=== PATIENT | male | born 1955 | race Caucasian/White ===

== ENCOUNTER 2018-12-09 20:50 | Emergency (ER) | payer BC ==
--- NOTE | 2018-12-09 21:11 | EDM.PDOC ---
ED HPI GENERAL MEDICAL PROBLEM - General Chief Complaint: Flank Pain Stated Complaint: Flank Pain Time Seen by Provider: 12/09/18 20:59 Source of Information: Reports: Patient History Limitations: Reports: No Limitations - History of Present Illness INITIAL COMMENTS - FREE TEXT/NARRATIVE: Patient presents with complaints of bilateral flank pain and cloudy urine. 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 States all other functions returned to normal except his bladder function. Denies chest pain, sob, fever, chills, head ache, abdominal pain. Regular bowel movements, no blood in urine or stool. Onset: Today, Sudden Duration: Intermittent Severity: Moderate Worsens with: Reports: Movement Flank Pain Score (Numeric/FACES): 5 - Related Data Allergies Allergy/AdvReac Type Severity Reaction Status Date / Time pseudoephedrine HCl Allergy Other Verified 12/09/18 21:02 [From [facility]] shrimp Allergy Anaphylactic Verified 12/09/18 21:02 Shock Home Meds: Home Meds Aspirin 81 mg PO DAILY 12/26/15 [History] Montelukast [Singulair] 10 mg PO DAILY 12/26/15 [History] Albuterol Sulfate [Proair Hfa] 8.5 gm IH Q4HR PRN 12/09/18 [History] Levothyroxine [Synthroid] 50 mcg PO ACBREAKFAST 12/09/18 [History] Past Medical History HEENT History: Reports: Allergic Rhinitis - Past Surgical History Musculoskeletal Surgical History: Reports: Arthroscopic Knee, Other (See Below) ED ROS GENERAL - Review of Systems Review Of Systems: See Below Constitutional: Reports: No Symptoms HEENT: Reports: No Symptoms Respiratory: Reports: No Symptoms Cardiovascular: Reports: No Symptoms Endocrine: Reports: No Symptoms GI/Abdominal: Reports: No Symptoms : Reports: Other (cloudy, foul smelling urine) Musculoskeletal: Reports: Back Pain (bilateral flank pain) Skin: Reports: No Symptoms Neurological: Reports: No Symptoms Psychiatric: Reports: No Symptoms Hematologic/Lymphatic: Reports: No Symptoms Immunologic: Reports: No Symptoms ED EXAM, RENAL/ - Physical Exam Exam: See Below Exam Limited By: No Limitations General Appearance: Alert, WD/WN, No Apparent Distress Head: Atraumatic, Normocephalic Neck: Normal Inspection, Supple, Non-Tender, Full Range of Motion Respiratory/Chest: No Respiratory Distress, Lungs Clear, Normal Breath Sounds, No Accessory Muscle Use, Chest Non-Tender Cardiovascular: Normal Peripheral Pulses, Regular Rate, Rhythm, No Edema, No Gallop, No JVD, No Murmur, No Rub GI/Abdominal: Normal Bowel Sounds, Soft, Non-Tender, No Organomegaly, No Distention, No Abnormal Bruit, No Mass Back Exam: CVA Tenderness (L), CVA Tenderness (R) Extremities: Normal Inspection, Normal Range of Motion, Non-Tender, Normal Capillary Refill, No Pedal Edema Neurological: Alert, Oriented, CN II-XII Intact, Normal Cognition, Normal Gait, Normal Reflexes, No Motor/Sensory Deficits Psychiatric: Normal Affect, Normal Mood Skin Exam: Warm, Dry, Intact, Normal Color, No Rash Lymphatic: No Adenopathy Course - Vital Signs Last Recorded V/S: Last Vital Signs Temp 36.6 C 12/09/18 21:08 Pulse 61 12/09/18 21:08 Resp 14 12/09/18 21:08 BP 150/72 H 12/09/18 21:08 Pulse Ox 97 12/09/18 21:08 - Orders/Labs/Meds Orders: Active Orders 24 hr Category Date Time Status CULTURE URINE [RM] Stat Lab 12/09/18 21:42 Ordered Labs: Laboratory Tests 12/09/18 Range/Units 21:30 Urine Color Light yellow (YELLOW) Urine Appearance Cloudy H (CLEAR) Urine pH 7.0 (5.0-8.0) Ur Specific [place] 1.010 Urine Protein Negative (NEGATIVE) mg/dL Urine Glucose (UA) Negative (NEGATIVE) mg/dL Urine Ketones Negative (NEGATIVE) mg/dL Urine Occult Blood Small H (NEGATIVE) Urine Nitrite Negative (NEGATIVE) Urine Bilirubin Negative (NEGATIVE) Urine Urobilinogen 0.2 (0.2) EU/dL Ur Leukocyte Esterase Large H (NEGATIVE) Urine RBC 5-10 H (NOT SEEN) /HPF Urine WBC 20-30 H (NOT SEEN) /HPF Ur Squamous Epith Cells Not seen (NEGATIVE) /HPF Urine Bacteria Not seen (NEGATIVE) /HPF Urine Mucus Not seen (NEGATIVE) /LPF Meds: Medications Discontinued Medications Generic Name Dose Route Start Last Admin Trade Name Freq PRN Reason Stop Dose Admin Ceftriaxone Sodium 1 gm/ 0 gm 12/09/18 21:49 12/09/18 21:54 Lidocaine HCl 2.1 ml IM 12/09/18 21:50 1 inj ONETIME ONE Administration - Re-Assessments/Exams Free Text/Narrative Re-Assessment/Exam: 12/09/18 22:06 Started on Augmentin due to prior culture results that showed resistance to ciprofloxacin, levofloxacin, bactrim, and ampicillin from October 2018 Departure - Departure Time of Disposition: 22:04 Disposition: Home, Self-Care 01 Condition: Good Clinical Impression: Pyelonephritis - Discharge Information *PRESCRIPTION DRUG MONITORING PROGRAM REVIEWED*: Not Applicable *COPY OF PRESCRIPTION DRUG MONITORING REPORT IN PATIENT JUDY: Not Applicable Instructions: Amoxicillin; Clavulanic Acid tablets, Pyelonephritis, Adult, Easy -to-Read, Flank Pain, Adult, [id number], Probiotics Forms: ED Department Discharge Additional Instructions: Plan 1. Stay well hydrated 2. Take the augmentin twice a day for 14 days. Follow up in about 3 weeks with Robb Barahona for a urine sample to be sure the infection has resolved 3. Eat 1-2 servings of yogurt or take daily probiotics to prevent a bacterial infection of the colon due to antibiotic use 4. Please follow up with your primary for any additional symptom management 5. Call the ED if you have any additional questions or concerns - Problem List & Annotations (1) Pyelonephritis SNOMED Code(s): 24267805 Code(s): N12 - TUBULO-INTERSTITIAL NEPHRITIS, NOT SPCF ACUTE OR CHRONIC Status: Acute Priority: Medium Current Visit: Yes - Problem List Review Problem List Initiated/Reviewed/Updated: Yes - My Orders Last 24 Hours: My Active Orders 12/09/18 21:42 CULTURE URINE [RM] Stat - Assessment/Plan Last 24 Hours: My Active Orders 12/09/18 21:42 CULTURE URINE [RM] Stat Assessment:: pyelonephritis Plan: Plan 1. Stay well hydrated 2. Take the augmentin twice a day for 14 days. Follow up in about 3 weeks with Robb Barahona for a urine sample to be sure the infection has resolved 3. Eat 1-2 servings of yogurt or take daily probiotics to prevent a bacterial infection of the colon due to antibiotic use 4. Please follow up with your primary for any additional symptom management 5. Call the ED if you have any additional questions or concerns
[2018-12-09] MEDS ORDERED: cefTRIAXone 1 GM, Lidocaine 1% 2.1 ML IM ONE ×2 (21:49)
== END 2018-12-09 22:04 | disposition home or self-care (01) ==
LOC: VM.ED 20:50
DX: N12 Tubulo-interstitial nephritis, not specified as acute or chronic (principal); Z91.013 Allergy to seafood; Z88.8 Allergy status to other drugs, medicaments and biological substances; Z79.82 Long term (current) use of aspirin; Z79.899 Other long term (current) drug therapy
CPT/HCPCS: 81001; 87086; 87088; 87186; 96372; 99284; J0696; J2001

== ENCOUNTER 2021-02-25 10:19 | Emergency (ER) | payer BC ==
[2021-02-25 11:15] LABS: CHLORIDE,CL 105 mmol/L (98-107); SODIUM,NA 141 mmol/L (136-145)
[2021-02-25 11:30] LABS: ANION GAP 11.6 mmol/L (5-15)
--- NOTE | 2021-02-25 16:02 | EDM.PDOC ---
ED HPI GENERAL MEDICAL PROBLEM - General Chief Complaint: Genitourinary Problem Stated Complaint: TESTICLE PAIN Time Seen by Provider: 02/25/21 10:28 Source of Information: Reports: Patient History Limitations: Reports: No Limitations - History of Present Illness INITIAL COMMENTS - FREE TEXT/NARRATIVE: Pt. presents to ER with complaints of testicular pain, R greater than left. He states that he has been having the pain since Thursday. Pt. has a history of urinary retention and intermittent self caths. He states that he has had some burning with urination. He states that he may have injured the area when he was masturbating. He denies any fever or chills. No penile discharge. No genital rashes or lesions. Denies any abdominal pain. No nausea, vomiting, or diarrhea. He states that he has issues with constipation chronically. Onset: Today Onset Date: 02/25/21 Location: Reports: Pelvis, Other Quality: Reports: Ache Severity: Moderate Right Scrotum Pain Score (Numeric/FACES): 4 - Related Data Allergies Allergy/AdvReac Type Severity Reaction Status Date / Time shrimp Allergy Severe Anaphylactic Verified 02/25/21 10:29 Shock pseudoephedrine HCl Allergy Other Verified 02/25/21 10:29 [[facility] Home Meds: Home Meds Aspirin 81 mg PO DAILY 12/26/15 [History] Montelukast [Singulair] 10 mg PO DAILY 12/26/15 [History] Albuterol Sulfate [Proair Hfa] 8.5 gm IH Q4HR PRN 12/09/18 [History] Levothyroxine [Synthroid] 50 mcg PO ACBREAKFAST 12/09/18 [History] Past Medical History HEENT History: Reports: Allergic Rhinitis Cardiovascular History: Reports: High Cholesterol Respiratory History: Reports: Asthma, Other (See Below) Other Respiratory History: Asthma - Mild Intermittent Genitourinary History: Reports: Neurogenic Bladder Neurological History: Reports: Other (See Below) Other Neuro History: Transverse Myelitis Endocrine/Metabolic History: Reports: Hypothyroidism, Obesity/BMI 30+, Other (See Below) Other Endocrine/Metabolic History: Hemochromatosis. Hyperlipidemia - Past Surgical History Male Surgical History: Reports: TURP-Transurethral Resection of Prostate, Other (See Below) Other Male Surgeries/Procedures: TURP (2002) Musculoskeletal Surgical History: Reports: Arthroscopic Knee, Other (See Below) Other Musculoskeletal Surgeries/Procedures:: Left Knee Arthroscopy - Debridement and Cartilage Removal (2013). Surgical Repair of Ankle Fracture (2003) Social & Family History - Tobacco Use Tobacco Use Status *Q: Unknown Ever Used Tobacco ED ROS GENERAL - Review of Systems Review Of Systems: See Below Constitutional: Reports: No Symptoms HEENT: Reports: No Symptoms Respiratory: Reports: No Symptoms Cardiovascular: Reports: No Symptoms Endocrine: Reports: No Symptoms GI/Abdominal: Reports: No Symptoms : Reports: Other (see HPI) Musculoskeletal: Reports: No Symptoms Skin: Reports: No Symptoms Neurological: Reports: No Symptoms Psychiatric: Reports: No Symptoms Hematologic/Lymphatic: Reports: No Symptoms Immunologic: Reports: No Symptoms ED EXAM, GENERAL - Physical Exam Exam: See Below Exam Limited By: No Limitations General Appearance: Alert, WD/WN, No Apparent Distress (Male) Exam: No Hernia, Normal Inspection, Circumcised, Cremasteric Reflex, Testicular Tenderness (L), Testicular Tenderness (R). No: Hernia, Inguinal Lymphadenopathy, Rash, Scrotal Swelling, Suprapubic Fullness, Testicular Mass, Urethral Discharge Course - Vital Signs Last Recorded V/S: Last Vital Signs Temp 36.5 C 02/25/21 10:22 Pulse 61 02/25/21 10:22 Resp 16 02/25/21 10:22 BP 142/71 H 02/25/21 10:22 Pulse Ox 97 02/25/21 10:22 - Orders/Labs/Meds Orders: Active Orders 24 hr Category Date Time Status CHLAMYDIA AND GONORRHEA BY TMA Stat Lab 02/25/21 10:40 Received CULTURE URINE [RM] Stat Lab 02/25/21 10:40 Received Labs: Laboratory Tests 02/25/21 02/25/21 02/25/21 Range/Units 10:40 10:52 10:52 WBC 4.4 (4.0-10.0) x10^3/uL RBC 4.22 L (4.5-6.0) x10^6/uL Hgb 14.1 (14.0-18.0) g/dL Hct 40.1 (40.0-52.0) % MCV 95.0 H (78.0-93.0) fL MCH 33.4 H (26.0-32.0) pg MCHC 35.2 (32.0-36.0) g/dL RDW Coeff of [place] 11.9 (10.0-15.0) % Plt Count 203 (130-400) x10^3/uL Immature Gran % (Auto) 0.00 (0.00-0.43) % Neut % (Auto) 57.5 (50.0-80.0) % Lymph % (Auto) 30.4 (25.0-50.0) % [place] % (Auto) 9.8 (2.0-11.0) % Eos % (Auto) 1.6 (0.0-4.0) % Baso % (Auto) 0.7 (0.2-1.2) % Neut # (Auto) 2.5 (1.8-7.7) x10^3/uL Lymph # (Auto) 1.3 (1.0-4.8) x10^3/uL [place] # (Auto) 0.4 (0.0-0.8) x10^3/uL Eos # (Auto) 0.1 (0.0-0.5) x10^3/uL Baso # (Auto) 0.0 (0.0-0.2) x10^3/uL Immature Gran # (Auto) 0.00 (0.00-0.07) x10^3/uL Sodium 141 (136-145) mmol/L Potassium 4.6 (3.5-5.1) mmol/L Chloride 105 (98-107) mmol/L Carbon Dioxide 29 (21-32) mmol/L Anion Gap 11.6 (5-15) mmol/L BUN 14 (7-18) mg/dL Creatinine 0.9 (0.70-1.30) mg/dL Est Cr Clr Drug Dosing TNP Estimated GFR (MDRD) > 60 Glucose 95 (70-99) mg/dL Calcium 8.5 (8.5-10.1) mg/dL Corrected Calcium 8.8 (8.5-10.1) mg/dL Total Bilirubin 0.5 (0.2-1.0) mg/dL AST 22 (15-37) U/L ALT 40 (16-63) U/L Alkaline Phosphatase 85 (46-116) U/L C-Reactive Protein 0.2 (<=0.9) mg/dL Total Protein 6.5 (6.4-8.2) g/dL Albumin 3.6 (3.4-5.0) g/dL Globulin 2.9 Albumin/Globulin Ratio 1.24 Urine Color Light yellow (YELLOW) Urine Appearance Cloudy H (CLEAR) Urine pH 7.5 (5.0-8.0) Ur Specific [place] 1.015 Urine Protein Negative (NEGATIVE) mg/dL Urine Glucose (UA) Negative (NEGATIVE) mg/dL Urine Ketones Negative (NEGATIVE) mg/dL Urine Occult Blood Trace-intact H (NEGATIVE) Urine Nitrite Negative (NEGATIVE) Urine Bilirubin Negative (NEGATIVE) Urine Urobilinogen 0.2 (0.2) EU/dL Ur Leukocyte Esterase Large H (NEGATIVE) Urine RBC 0-5 (NOT SEEN) /HPF Urine WBC 50-75 H (NOT SEEN) /HPF Ur Squamous Epith Cells Few H (NOT SEEN) /HPF Urine Bacteria Rare (NOT SEEN) /HPF Urine Mucus Not seen (NOT SEEN) /LPF - Radiology Interpretation Free Text/Narrative:: Duplex testicular US obtained. Verbal result called to ER by Dr. Anand at [facility]. He did not favor any torsion, obvious epididymidis, testicu lar trauma, or other pathology. Departure - Departure Time of Disposition: 11:15 Disposition: Home, Self-Care 01 Clinical Impression: UTI (urinary tract infection) - Discharge Information Instructions: Spermatocele Referrals: Reuben Mcdermott MD [Primary Care Provider] - Forms: ED Department Discharge Additional Instructions: Go to [facility] in [place] immediately for a testicular ultrasound. I will call you with the results of your tests (lab and ultrasound) and give you further instructions. Sepsis Event Note (ED) - Focused Exam Vital Signs: Vital Signs Temp Pulse Resp BP Pulse Ox 02/25/21 10:22 36.5 C 61 16 142/71 H 97 - Problem List Review Problem List Initiated/Reviewed/Updated: Yes - My Orders Last 24 Hours: My Active Orders 02/25/21 10:40 CHLAMYDIA AND GONORRHEA BY TMA Stat CULTURE URINE [RM] Stat - Assessment/Plan Last 24 Hours: My Active Orders 02/25/21 10:40 CHLAMYDIA AND GONORRHEA BY TMA Stat CULTURE URINE [RM] Stat Plan: Pt. was discharged to undergo ultrasound at [facility] before his labs were back, as the aerospace technician was leaving soon. No evidence of pathology on ultrasound. Labs were all within normal limits with the exception of LE in his urine. Pt. was called with results. Script for Bactrim DS 1 twice daily for 7 days was called to [facility]. GC and chlamydia were ordered and are pending. Pt. 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 Will make him aware of the results if they come back positive. Advised to follow-up in clinic in 7-10 days, sooner of not gradually improving.
[2021-02-26 14:12] LABS: C.TRACHOMATIS BY TMA Negative (Negative); N.GONORRHOEAE BY TMA Negative (Negative)
== END 2021-02-25 10:58 | disposition home or self-care (01) ==
LOC: VM.ED 10:19
DX: N39.0 Urinary tract infection, site not specified (principal); E78.00 Pure hypercholesterolemia, unspecified; E03.9 Hypothyroidism, unspecified; J45.909 Unspecified asthma, uncomplicated; E66.9 Obesity, unspecified; Z68.30 Body mass index [BMI] 30.0-30.9, adult; Z91.018 Allergy to other foods; Z88.8 Allergy status to other drugs, medicaments and biological substances; Z79.82 Long term (current) use of aspirin; Z79.899 Other long term (current) drug therapy
CPT/HCPCS: 36415; 80053; 81001; 85025; 86140; 87086; 87088; 87491; 87591; 99284

== ENCOUNTER 2021-04-20 21:32 | Emergency (ER) | payer BC ==
[2021-04-20] MEDS ORDERED: Take Home: Nitrofurantoin Monohydrate/Macrocrystalline 100 MG, 2 Cap Pack PO ONE (22:41)
--- NOTE | 2021-04-21 01:27 | EDM.PDOC ---
ED HPI GENERAL MEDICAL PROBLEM - General Chief Complaint: Genitourinary Problem Stated Complaint: POSSIBLE UTI Time Seen by Provider: 04/20/21 22:05 Source of Information: Reports: Patient History Limitations: Reports: No Limitations - History of Present Illness INITIAL COMMENTS - FREE TEXT/NARRATIVE: Pt. presents to ER with dysuria, frequency, and urgency. He self caths QID and has had UTIs in the past. Pt. states symptoms started today. Urine noted to be cloudy. Pt. denies any back/flank pain, no fever or chills, nausea, vomiting, or diarrhea. Denies any abdominal pain. No chest pain or shortness of breath. Onset: Today Location: Reports: Generalized - Related Data Allergies Allergy/AdvReac Type Severity Reaction Status Date / Time shrimp Allergy Severe Anaphylactic Verified 02/25/21 10:29 Shock pseudoephedrine HCl Allergy Other Verified 02/25/21 10:29 [From [facility]] Home Meds: Home Meds Aspirin 81 mg PO DAILY 12/26/15 [History] Montelukast [Singulair] 10 mg PO DAILY 12/26/15 [History] Albuterol Sulfate [Proair Hfa] 8.5 gm IH Q4HR PRN 12/09/18 [History] Levothyroxine [Synthroid] 50 mcg PO ACBREAKFAST 12/09/18 [History] Past Medical History HEENT History: Reports: Allergic Rhinitis Cardiovascular History: Reports: High Cholesterol Respiratory History: Reports: Asthma, Other (See Below) Other Respiratory History: Asthma - Mild Intermittent Genitourinary History: Reports: Neurogenic Bladder Neurological History: Reports: Other (See Below) Other Neuro History: Transverse Myelitis Endocrine/Metabolic History: Reports: Hypothyroidism, Obesity/BMI 30+, Other (See Below) Other Endocrine/Metabolic History: Hemochromatosis. Hyperlipidemia - Past Surgical History Male Surgical History: Reports: TURP-Transurethral Resection of Prostate, Other (See Below) Other Male Surgeries/Procedures: TURP (2002) Musculoskeletal Surgical History: Reports: Arthroscopic Knee, Other (See Below) Other Musculoskeletal Surgeries/Procedures:: Left Knee Arthroscopy - Debridement and Cartilage Removal (2013). Surgical Repair of Ankle Fracture (2003) Social & Family History - Family History Family Medical History: No Pertinent Family History - Tobacco Use Tobacco Use Status *Q: Former Tobacco User Used Tobacco, but Quit: Yes Month/Year Tobacco Last Used: Unknown - Recreational Drug Use Recreational Drug Use: No ED ROS GENERAL - Review of Systems Review Of Systems: Comprehensive ROS is negative, except as noted in HPI. ED EXAM, GENERAL - Physical Exam Exam: See Below Exam Limited By: No Limitations General Appearance: Alert, WD/WN, No Apparent Distress Respiratory/Chest: No Respiratory Distress, Lungs Clear, Normal Breath Sounds, No Accessory Muscle Use, Chest Non-Tender Cardiovascular: Normal Peripheral Pulses, Regular Rate, Rhythm, No Edema, No JVD, No Murmur, No Rub Peripheral Pulses: 4+: Radial (L) GI/Abdominal: Non-Tender (Male) Exam: Deferred Course - Vital Signs Last Recorded V/S: Last Vital Signs Temp 37.0 C 04/20/21 22:05 Pulse Resp BP Pulse Ox - Orders/Labs/Meds Orders: Active Orders 24 hr Category Date Time Status CULTURE URINE [RM] Routine Lab 04/20/21 22:05 Received Labs: Laboratory Tests 04/20/21 Range/Units 22:05 Urine Color Yellow (YELLOW) Urine Appearance Slightly cloudy H (CLEAR) Urine pH 7.5 (5.0-8.0) Ur Specific [place] 1.015 Urine Protein Negative (NEGATIVE) mg/dL Urine Glucose (UA) Negative (NEGATIVE) mg/dL Urine Ketones Negative (NEGATIVE) mg/dL Urine Occult Blood Trace-intact H (NEGATIVE) Urine Nitrite Negative (NEGATIVE) Urine Bilirubin Negative (NEGATIVE) Urine Urobilinogen 0.2 (0.2) EU/dL Ur Leukocyte Esterase Moderate H (NEGATIVE) Urine RBC 0-5 (NOT SEEN) /HPF Urine WBC 40-50 H (NOT SEEN) /HPF Ur Squamous Epith Cells Not seen (NOT SEEN) /HPF Urine Bacteria Rare (NOT SEEN) /HPF Urine Mucus Rare H (NOT SEEN) /LPF Meds: Medications Discontinued Medications Generic Name Dose Route Start Last Admin Trade Name Freq PRN Reason Stop Dose Admin Nitrofurantoin Macrocrystals 2 packet 04/20/21 22:41 04/21/21 00:08 Take Home: Nitrofurantoin Monohydrate/Macrocrystalline 100 Mg, 2 Cap Pack PO 04/20/21 22:42 2 packet ONETIME ONE Administration Departure - Departure Time of Disposition: 22:52 Disposition: Home, Self-Care 01 Clinical Impression: UTI (urinary tract infection) - Discharge Information Instructions: Nitrofurantoin tablets or capsules, Urinary Tract Infection, Adult, Probiotics Referrals: Reuben cobos MD [Primary Care Provider] - Forms: ED Department Discharge Additional Instructions: Macrobid 100mg 1 twice daily for 10 days Drink plenty fluids We will let you know if your urine shows resistance to the macrobid. Recheck in clinic in 10-14 days. Sepsis Event Note (ED) - Evaluation Sepsis Screening Result: No Definite Risk - Focused Exam Vital Signs: Vital Signs Temp 04/20/21 22:05 37.0 C - Problem List Review Problem List Initiated/Reviewed/Updated: Yes - My Orders Last 24 Hours: My Active Orders 04/20/21 22:05 CULTURE URINE [RM] Routine - Assessment/Plan Last 24 Hours: My Active Orders 04/20/21 22:05 CULTURE URINE [RM] Routine Plan: Macrobid 100mg 1 twice daily for 10 days Drink plenty fluids We will let you know if your urine shows resistance to the macrobid. Recheck in clinic in 10-14 days.
== END 2021-04-20 22:52 | disposition home or self-care (01) ==
LOC: VM.ED 21:32
DX: N39.0 Urinary tract infection, site not specified (principal); E78.00 Pure hypercholesterolemia, unspecified; E66.9 Obesity, unspecified; E03.9 Hypothyroidism, unspecified; Z68.31 Body mass index [BMI] 31.0-31.9, adult; Z79.82 Long term (current) use of aspirin; Z91.018 Allergy to other foods; Z88.8 Allergy status to other drugs, medicaments and biological substances; Z79.899 Other long term (current) drug therapy; Z87.891 Personal history of nicotine dependence
CPT/HCPCS: 81001; 87086; 87088; 87186; 99283

== ENCOUNTER 2021-10-18 14:22 | Emergency (ER) | payer BC ==
[2021-10-18] MEDS ORDERED: methylPREDNISolone Sodium Succinate 125 MG/2 ML SDV IVPUSH ONE (14:27)
[2021-10-18] MEDS ORDERED: Albuterol/Ipratropium 3.0-0.5 MG/3 ML Neb Soln NEB ONE (14:27)
== END 2021-10-18 15:11 | disposition home or self-care (01) ==
LOC: VM.ED 14:22
DX: J20.9 Acute bronchitis, unspecified (principal); E03.9 Hypothyroidism, unspecified; E66.9 Obesity, unspecified; Z68.25 Body mass index [BMI] 25.0-25.9, adult; Z91.018 Allergy to other foods; Z88.8 Allergy status to other drugs, medicaments and biological substances; Z79.82 Long term (current) use of aspirin; Z79.899 Other long term (current) drug therapy
CPT/HCPCS: 96374; 99283; 99284-25; J2930; J7620-GY

== ENCOUNTER 2021-10-31 19:54 | Emergency (ER) | payer BC ==
[2021-10-31] MEDS: Ketorolac 30 MG/ML SDV IM ONE (20:43)
[2021-10-31] MEDS: Orphenadrine 60 MG/2 ML Inj IM ONE (20:43)
== END 2021-10-31 21:10 | disposition home or self-care (01) ==
LOC: VM.ED 19:54
DX: M54.50 Low back pain, unspecified (principal); J45.909 Unspecified asthma, uncomplicated; E03.9 Hypothyroidism, unspecified; E66.9 Obesity, unspecified; Z68.31 Body mass index [BMI] 31.0-31.9, adult; Z79.899 Other long term (current) drug therapy; Z79.82 Long term (current) use of aspirin; Z91.013 Allergy to seafood; Z88.8 Allergy status to other drugs, medicaments and biological substances
CPT/HCPCS: 96372; 99283; J1885; J2360

== ENCOUNTER 2023-02-23 13:26 | Emergency (ER) | payer BC ==
[2023-02-23 13:52] LABS: BILIRUBIN,URINE NEGATIVE (NEGATIVE); COLOR,URINE YELLOW (YELLOW); GLUCOSE,URINE NEGATIVE (NEGATIVE); KETONES,URINE NEGATIVE (NEGATIVE); LEUKOCYTE ESTERASE,URINE LARGE (NEGATIVE); NITRITE,URINE NEGATIVE (NEGATIVE); OCCULT BLOOD,URINE TRACE-INTACT (NEGATIVE); PH,URINE 5.5 (5.0-8.0); PROTEIN,URINE NEGATIVE (NEGATIVE); UROBILINOGEN,URINE 0.2 EU/dL (0.2)
[2023-02-23 13:57] LABS: APPEARANCE,URINE SLIGHTLY CLOUDY (CLEAR)
[2023-02-23 14:00] LABS: BACTERIA,URINE OCCASIONAL /HPF (NOT SEEN); MUCUS,URINE OCCASIONAL /LPF (NOT SEEN); SQUAMOUS EPITHELIAL CELLS,UR NOT SEEN /HPF (NOT SEEN); WBC,URINE 20-30 /HPF (NOT SEEN)
== END 2023-02-23 14:20 | disposition home or self-care (01) ==
LOC: VM.ED 13:26
DX: N39.0 Urinary tract infection, site not specified (principal); J45.909 Unspecified asthma, uncomplicated; E03.9 Hypothyroidism, unspecified; E66.9 Obesity, unspecified; Z68.34 Body mass index [BMI] 34.0-34.9, adult; Z88.8 Allergy status to other drugs, medicaments and biological substances; Z91.013 Allergy to seafood; Z79.899 Other long term (current) drug therapy
CPT/HCPCS: 81001; 87086; 87088; 99283; 99284

== ENCOUNTER 2023-02-24 06:54 | Emergency (ER) | payer BC ==
[2023-02-24] MEDS: Ketorolac 30 MG/ML SDV IM ONE (07:22)
[2023-02-24] MEDS: Orphenadrine 60 MG/2 ML Inj IM ONE (07:23)
== END 2023-02-24 07:42 | disposition home or self-care (01) ==
LOC: VM.ED 06:54
DX: M54.50 Low back pain, unspecified (principal); J45.909 Unspecified asthma, uncomplicated; E03.9 Hypothyroidism, unspecified; E66.9 Obesity, unspecified; Z68.34 Body mass index [BMI] 34.0-34.9, adult; Z88.8 Allergy status to other drugs, medicaments and biological substances; Z91.013 Allergy to seafood; Z79.899 Other long term (current) drug therapy
CPT/HCPCS: 96372; 99283; J1885; J2360